=== PATIENT | female | born 1990 | race Caucasian/White ===

== ENCOUNTER → 2016-06-18 13:26 | Outpatient (CLI) | payer MEDICAID | END | disposition home or self-care (01) | LOC: D.MRI 13:26 | DX: M25.532 Pain in left wrist (principal) ==

== ENCOUNTER → 2018-09-13 07:23 | Outpatient (CLI) | payer MEDICAID | END | disposition home or self-care (01) | LOC: D.NM 09-11 13:00 | PROVIDERS: ATTEND Nurse Practitioner | DX: R10.11 Right upper quadrant pain (principal) ==

== ENCOUNTER 2018-12-18 09:35 | Day surgery (SDC) | payer MEDICAID ==
[~2018-12-18] VITALS: Ht 152.4 cm; Wt 115.9 kg
[2018-12-18 10:11] LABS: HEMATOCRIT 37.4 % (36.0-48.0); HEMOGLOBIN 12.4 g/dL (12-16); MCH 30.1 pg (26.0-34.0); MCHC 33.2 g/dL (31.0-37.0); MCV 90.8 fL (80.0-100.0); MEAN PLATELET VOLUME 11.3 fL (7.4-10.4); RBC 4.12 10x6/uL (4.00-5.40); RDW 12.7 % (11.5-14.5); WBC 6.6 10x3/uL (4.8-10.8)
[2018-12-18] MEDS ORDERED: SYMBICORT 80-10.2 GM INH (11:30)
[2018-12-18] MEDS ORDERED: SINGULAIR10 MG PO (11:30)
[2018-12-18] MEDS ORDERED: SPRINTEC 28 DA1 EAC1 PO (11:30)
[2018-12-18] MEDS ORDERED: OMEPRAZOLE40 MG PO (11:30)
[2018-12-18] MEDS ORDERED: MOBIC7.5 MG PO (11:31)
[2018-12-18] MEDS ORDERED: proair hfa (11:32)
[2018-12-18 11:39] LABS: HCG URINE NEGATIVE (NEGATIVE)
[2018-12-18 11:41] VITALS: BP 116/77; Ht 152.4 cm; Wt 115.9 kg
--- NOTE | 2018-12-18 14:12 | NUR ---
1336 IV DC'D. CATHETER INTACT. NO BLEEDING AT SITE. BANDAID APPLIED.
--- NOTE | 2018-12-18 14:13 | NUR ---
1350 SCHEDULED GASTRIC EMPTYING STUDY FOR PT.
--- NOTE | 2018-12-20 08:48 | OP ---
PATIENT NAME: MADISON MELENDREZ MEDICAL RECORD: [id number] :88 LOCATION:[facility] ADMISSION DATE: SURGEON: XENIA DARLING DO DATE OF OPERATION: 12/18/2018 PROCEDURE: EGD with polypectomy and biopsies. INDICATIONS FOR PROCEDURE: Epigastric abdominal pain as well as heartburn and nausea. SCOPE: Olympus video gastroscope. MEDICATIONS: Propofol 300 mg IV per anesthesia. ESTIMATED BLOOD LOSS: Minimal. COMPLICATIONS: None. FINDINGS: Informed consent was given. The patient was made comfortable with the above medication. After reaching an adequate level of sedation by slow IV push, the patient was placed on her left side. The endoscope was advanced under direct visualization through the mouth to the second portion of the duodenum. The esophagus itself appeared normal. Mid esophageal biopsies were taken to rule out the presence of EoE. At the GE junction, there was evidence of LA class A reflux-induced esophagitis without ulcerations. The endoscope was advanced into the stomach and retroflexed to view the cardia and fundus, which appeared normal. There were no gastritis changes throughout the entire stomach. There was a single benign-appearing gastric polyp, which looked consistent with a fundic gland polyp located in the proximal body of the stomach. It was removed using EMR technique with normal saline lift followed by a snare polypectomy in one piece. Random cold forceps biopsies were taken from the antrum and incisura to rule out the presence of H. pylori. The endoscope was advanced into the duodenum, which appeared normal down to the second portion. Random cold forceps biopsies were taken to submit for histopathology. The endoscope was withdrawn from the patient. The patient tolerated the procedure well and there were no complications. IMPRESSIONS: 1. LA class A reflux-induced esophagitis. 2. A single benign-appearing gastric polyp, which looks to be a fundic gland polyp. It was removed using a hot snare. 3. Otherwise, normal endoscopy. PLAN AND RECOMMENDATIONS: 1. Discharge home when recovery parameters are met. 2. Follow up biopsy specimen results. 3. Continue current diet and current medications including omeprazole 40 mg daily. 4. Gastric emptying scan regarding the upper abdominal symptoms. 5. If the gastric emptying scan is normal, consider surgical referral regarding ongoing right upper quadrant pain. TRANSINT:[id number] Voice Confirmation ID: [id number] DOCUMENT ID: [id number] OPERATIVE REPORT [id number] MADISON MELENDREZ NATHAN A DO at 0848 CC: [id number] DICTATION DATE: 12/18/18 1306 ACTUARIAL CLERK: 12/18/18 1354 [facility] 12/18/18 [id number] [place] [address]
== END 2018-12-18 14:07 | disposition home or self-care (01) ==
LOC: D.OPS 09:35
PROVIDERS: Anesthesiology; ATTEND Internal Medicine Gastroenterology
DX: K21.0 Gastro-esophageal reflux disease with esophagitis (principal); K31.7 Polyp of stomach and duodenum; Z01.812 Encounter for preprocedural laboratory examination

== ENCOUNTER → 2018-12-20 11:15 | Outpatient (CLI) | payer MEDICAID ==
[2018-12-18 11:41] VITALS: BMI 49.9
[~2018-12-20 11:15] MED LIST: MOBIC7.5 MG PO; OMEPRAZOLE40 MG PO; SINGULAIR10 MG PO; SPRINTEC 28 DA1 EAC1 PO; SYMBICORT 80-10.2 GM INH; proair hfa
== END | disposition home or self-care (01) ==
LOC: D.NM 11:15
PROVIDERS: ATTEND Internal Medicine Gastroenterology
DX: R10.13 Epigastric pain (principal); R12 Heartburn; R11.0 Nausea

== ENCOUNTER → 2019-01-10 08:28 | Outpatient (CLI) | payer MEDICAID ==
[2018-12-18 11:41] VITALS: BMI 49.9
== END | disposition home or self-care (01) ==
LOC: D.RT 08:28
PROVIDERS: ATTEND Internal Medicine Pulmonary Disease
DX: J45.909 Unspecified asthma, uncomplicated (principal)

== ENCOUNTER → 2019-03-02 08:32 | Outpatient (CLI) | payer MEDICAID ==
[2018-12-18 11:41] VITALS: BMI 49.9
== END | disposition home or self-care (01) ==
LOC: D.MRI 08:32
PROVIDERS: ATTEND Nurse Practitioner Family
DX: M25.561 Pain in right knee (principal)